=== PATIENT | female | born 1960 | race Caucasian/White ===

== ENCOUNTER 2020-03-18 09:16 | Emergency (ER) | payer OTHER ==
[~2020-03-18] VITALS: Ht 167.6 cm; Wt 53.5 kg
[~2020-03-18 09:16] MED LIST: IRON INFUSION; Percocet 5-3251 EACH PO
[2020-03-18] MEDS ORDERED: PANTOPRAZOLE SO40 M2 PO (09:35)
[2020-03-18] MEDS ORDERED: Norco 5-325 Ta1 EACH PO (10:49)
== END 2020-03-18 11:05 | disposition home or self-care (01) ==
LOC: ER 09:16
DX: S93.601A Unspecified sprain of right foot, initial encounter (principal); Z88.5 Allergy status to narcotic agent; Z79.899 Other long term (current) drug therapy; Z88.6 Allergy status to analgesic agent; Z91.81 History of falling; W01.198A Fall on same level from slipping, tripping and stumbling with subsequent striking against other object, initial encounter
CPT/HCPCS: 73630; 99283-25

== ENCOUNTER → 2021-09-02 | Outpatient (CLI) | payer OTHER ==
[~2021-09-02] MED LIST changes: +Norco 5-325 Ta1 EACH PO; +PANTOPRAZOLE SO40 M2 PO
== END | disposition home or self-care (01) ==
LOC: LAB 09:30 → LAB SHORT 09:30
DX: R30.0 Dysuria (principal)
CPT/HCPCS: 87077; 87086; 87186

== ENCOUNTER → 2022-02-19 | Outpatient (CLI) | payer OTHER | LOC: LAB 06:10 → LAB SHORT 06:10 | DX: R30.0 Dysuria (principal) | CPT/HCPCS: 87086 ==

== ENCOUNTER → 2022-05-15 | Outpatient (CLI) | payer OTHER | END | disposition home or self-care (01) | LOC: LAB SHORT 08:08 → LAB 08:08 | DX: R30.0 Dysuria (principal) | CPT/HCPCS: 87077; 87086; 87186 ==

== ENCOUNTER → 2022-08-26 | Outpatient (CLI) | payer OTHER ==
[2022-08-26 18:56] LABS: Protein, Urine Quantitative 18.8 mg/dL (0.0-11.9)
== END | disposition home or self-care (01) ==
LOC: LAB 16:10 → LAB SHORT 16:10
PROVIDERS: Family Medicine
DX: R80.9 Proteinuria, unspecified (principal)
CPT/HCPCS: 81050; 84156

== ENCOUNTER 2024-12-13 06:39 | Emergency (ER) | payer OTHER ==
[~2024-12-13] VITALS: Ht 167.6 cm; Wt 53.5 kg
[2024-12-13 07:25] VITALS: BP 109/79
[2024-12-13] MEDS ORDERED: HYDROcodone 5-APAP 325 TAB PO ONE (08:10)
[2024-12-13] MEDS ORDERED: Ondansetron 4 MG SoluTab SL ONE (08:10)
[2024-12-13] MEDS ORDERED: HYDR1TAB94 PO (08:51)
== END 2024-12-13 09:13 | disposition home or self-care (01) ==
LOC: ER 06:39
DX: S59.902A Unspecified injury of left elbow, initial encounter (principal); S60.222A Contusion of left hand, initial encounter; S90.32XA Contusion of left foot, initial encounter; W10.9XXA Fall (on) (from) unspecified stairs and steps, initial encounter; X50.1XXA Overexertion from prolonged static or awkward postures, initial encounter; Z88.5 Allergy status to narcotic agent; Z79.899 Other long term (current) drug therapy
CPT/HCPCS: 73060; 73080; 73130; 73600; 73630; A9270